=== PATIENT | male | born 1980 | race Caucasian/White ===

== ENCOUNTER 2021-08-22 13:45 | Outpatient (CLI) | payer OTHER ==
--- NOTE | 2021-08-22 14:25 | XRAY Report ---
PROCEDURE: Hand 3 View RT INDICATIONS: SWELLING ON 4TH AND 5TH MT AREA TECHNIQUE: 3 views of the hand(s) acquired. COMPARISON: No FINDINGS: Bones: No visible acute fractures. No acute dislocation. There is severe, complete joint space loss a t the third MCP joint along with periarticular erosions, and subcortical cysts. Small periarticular e rosive changes seen at the fifth proximal phalanx base as well. No suspicious bony lesions. Soft tissues: No suspicious soft tissue calcifications. IMPRESSION: 1. No definite fracture or acute dislocation. If there is concern for occult fracture, immobilization and reimaging in 7-10 days is recommended. 2. Incidental note made of polyarticular arthritic changes affecting the third MCP and to a much less er extent fifth MCP. This raises the possibility of inflammatory arthritis or gout. Reviewed by: Radha Fong MD on 08/22/2021 2:23 PM PST Approved by: Radha Fong MD on 08/22/2021 2:23 PM PST Station ID: [id number]
== END 2021-08-22 13:46 | disposition home or self-care (01) ==
LOC: DI 13:45
PROVIDERS: ATTEND Registered Nurse
DX: M79.641 Pain in right hand (principal)